=== PATIENT | female | born 1935 | race Caucasian/White ===

== ENCOUNTER 2022-03-05 21:40 | Outpatient (REF) | payer MEDICARE, OTHER, SELFPAY ==
[2022-03-05 21:10] LABS: HCT 37.9 % (36.0-46.0); HGB 12.3 g/dL (11.2-15.7); MCH 30.8 pg (27.0-33.0); MCHC 32.5 % (32.0-36.0); MCV 95 fL (80-95); MPV 10.8 fL (8.0-11.0); Platelet Count 210 10^3/uL (130-400); RBC 3.99 10^6/uL (3.93-5.22); RDW 12.8 % (11.7-14.6); WBC 7.93 10^3/uL (4.4-10.8)
[2022-03-05 21:27] LABS: ALT 28 U/L (14-59); AST 21 U/L (15-37); Albumin 3.7 g/dL (3.4-5.0); Alkaline Phosphatase 95 U/L (46-116); Anion Gap 6.2 mmol/L (3-11); BUN 22 mg/dL (7-18); Bilirubin, Total 0.5 mg/dL (0.2-1.0); CO2 29.8 mmol/L (21.0-32.0); CREATININE 0.8 mg/dL (0.55-1.02); Calcium 9.7 mg/dL (8.5-10.1); Chloride 100 mmol/L (98-107); Estimated GFR 71.71 (mL/min/1.73m2); Glucose 110 mg/dL (74-106); Potassium 4.4 mmol/L (3.5-5.1); Sodium 136 mmol/L (136-145); Total Protein 6.5 g/dL (6.4-8.2)
[2022-03-05 21:39] LABS: Calculated LDL 60 mg/dL (<100); Cholesterol 129 mg/dL (<200); HDL Cholesterol 57 mg/dL (40-60); Triglyceride 60 mg/dL (<150)
== END 2022-03-05 21:41 | disposition home or self-care (01) ==
LOC: NCHCN 21:40
PROVIDERS: Visit Provider Nurse Practitioner Family
DX: E78.5 Hyperlipidemia, unspecified; I10 Essential (primary) hypertension
CPT/HCPCS: 80053; 80061; 85027

== ENCOUNTER 2023-06-03 04:52 | Outpatient (CLI) | payer MEDICARE, OTHER, SELFPAY ==
[2023-06-03 14:08] LABS: Abs Immature Grans 0.06 10^3/uL (0.0-0.06); Absolute Basophil Count 0.06 10^3/uL (0.0-0.2); Absolute Eosinophil Count 0.22 10^3/uL (0.0-0.7); Absolute Lymphocyte Count 2.23 10^3/uL (1.2-3.4); Absolute Monocyte Count 0.81 10^3/uL (0.1-0.8); Absolute Neutrophil Count 5.62 10^3/uL (1.2-6.7); Basophils % 0.7; Eosinophils % 2.4; HCT 40.1 % (36.0-46.0); Immature Grans % 0.7; Lymphocytes % 24.8; MCH 29.9 pg (27.0-33.0); MCHC 32.4 % (32.0-36.0); MCV 92 fL (80-95); MPV 9.6 fL (8.0-11.0); Neutrophils % 62.4; Platelet Count 243 10^3/uL (130-400); RBC 4.35 10^6/uL (3.93-5.22); RDW 12.8 % (11.7-14.6); RDW-SD 43.2 fL
[2023-06-03 14:28] LABS: ALT 15 U/L (14-59); AST 17 U/L (15-37); Albumin 3.7 g/dL (3.4-5.0); Alkaline Phosphatase 97 U/L (46-116); Anion Gap 4.5 mmol/L (3-11); BUN 25 mg/dL (7-18); Bilirubin, Total 0.4 mg/dL (0.2-1.0); CO2 31.5 mmol/L (21.0-32.0); Calcium 10.4 mg/dL (8.5-10.1); Chloride 103 mmol/L (98-107); Estimated GFR 54.53 (mL/min/1.73m2); Glucose 92 mg/dL (74-106); Potassium 4.3 mmol/L (3.5-5.1); Sodium 139 mmol/L (136-145); Total Protein 6.9 g/dL (6.4-8.2)
[2023-06-03 23:51] LABS: CEA 10.3 ng/mL (See Note)
== END 2023-06-03 04:53 | disposition home or self-care (01) ==
LOC: LBO 04:52
PROVIDERS: PCP Nurse Practitioner Family; Visit Provider Internal Medicine Hematology & Oncology
DX: C18.9 Malignant neoplasm of colon, unspecified (principal)
CPT/HCPCS: 36415; 80053; 82378; 85025

== ENCOUNTER 2023-10-12 15:11 | Outpatient (REF) | payer MEDICARE, OTHER, SELFPAY | END 2023-10-12 15:12 | disposition home or self-care (01) | LOC: NCHCN 15:11 | PROVIDERS: PCP Nurse Practitioner Family; Visit Provider Physician Assistant | DX: N39.0 Urinary tract infection, site not specified (principal) | CPT/HCPCS: 87086 ==

== ENCOUNTER 2024-02-04 18:16 | Emergency (ER) | payer MEDICARE, OTHER, SELFPAY ==
[2024-02-04] VITALS (15 sets, daily range): BP systolic 164–223; BP diastolic 71–120; PULSE 54–76; RESP 10–27; O2SAT 96–98
--- NOTE | 2024-02-04 18:15 | RT.EKG_ITS ---
APPROVED REPORT Exam: Resting ECG Reason for Exam: palpatations Patient Location: E HR:69 bpm ECG Measurements Heart Rate 69 AXIS NM 189 P 35 QRSd 99 QRS -45 QT 454 T 20 QTc 487 Conclusion Sinus rhythm 69 normal axis no stemi
[2024-02-04 18:45] LABS: Abs Immature Grans 0.05 10^3/uL (0.0-0.06); Absolute Basophil Count 0.05 10^3/uL (0.0-0.2); Absolute Lymphocyte Count 1.95 10^3/uL (1.2-3.4); Absolute Monocyte Count 0.76 10^3/uL (0.1-0.8); Absolute Neutrophil Count 8.04 10^3/uL (1.2-6.7); Basophils % 0.5 %; Eosinophils % 0.9 %; HGB 13.7 g/dL (11.2-15.7); Immature Grans % 0.5 %; Lymphocytes % 17.8 %; MCH 30.4 pg (27.0-33.0); MCHC 32.6 % (32.0-36.0); MCV 93 fL (80-95); MPV 9.7 fL (8.0-11.0); Monocytes % 6.9 %; Neutrophils % 73.4 %; Platelet Count 218 10^3/uL (130-400); RBC 4.51 10^6/uL (3.93-5.22); RDW 12.8 % (11.7-14.6); RDW-SD 43.8 fL; WBC 10.95 10^3/uL (4.4-10.8)
[2024-02-04 19:04] LABS: ALT 20 U/L (14-59); AST 21 U/L (15-37); Albumin 3.9 g/dL (3.4-5.0); Alkaline Phosphatase 108 U/L (46-116); Anion Gap 11.7 mmol/L (3-11); BUN 21 mg/dL (7-18); Bilirubin, Total 0.44 mg/dL (0.2-1.0); CO2 26.3 mmol/L (21.0-32.0); CREATININE 0.9 mg/dL (0.55-1.02); Calcium 10.1 mg/dL (8.5-10.1); Chloride 102 mmol/L (98-107); Estimated GFR 61.49 (mL/min/1.73m2); Glucose 114 mg/dL (74-106); Magnesium 2.2 mg/dL (1.8-2.4); Potassium 3.9 mmol/L (3.5-5.1); Sodium 140 mmol/L (136-145); Total Protein 7.5 g/dL (6.4-8.2); Troponin I < 50 ng/L (< or =60)
[2024-02-04 20:09] LABS: Bilirubin Negative (Negative); Blood Trace-lysed (Negative); Clarity Clear (Clear); Glucose Negative (Negative); Ketones Negative (Negative); Leukocyte Esterase Trace (Negative); Nitrite Negative (Negative); Urobilinogen 0.2 mg/dL (Up to 0.2); pH 6.5 (5-8)
[2024-02-04 20:10] LABS: Bacteria Rare HPF (Negative); C & S Indicated? No; Casts 0-2 Hyaline LPF (Negative); Crystals Negative HPF (Negative); Epithelial Cells Rare HPF (Negative); Mucus Negative (Negative); RBC 0-2 HPF (0-2)
--- NOTE | 2024-02-04 21:12 | ED.GENADUL_ITS ---
Discharge Plan Disposition Patient Disposition: Home Discharge Details Clinical Impression: Fatigue, Poor appetite Primary Care Provider: Jenni Hernandez ED Provider: Stan Aldana Home Meds and New Rx's Prescriptions: No Action telmisartan-hydrochlorothiazid [Micardis HCT] 80-12.5 mg tablet 1 tab PO DAILY citalopram [Celexa] 20 mg tablet 20 mg PO DAILY omeprazole 20 mg capsule,delayed release(DR/EC) 20 mg PO DAILY aspirin 81 mg tablet,delayed release (DR/EC) 81 mg PO DAILY lorazepam 0.5 mg tablet 0.5 mg PO QHS polyethylene glycol 3350 [Miralax] 17 gram powder in packet 17 g PO DAILY PRN ergocalciferol (vitamin D2) 50 mcg (2,000 unit) capsule 50 mcg PO DAILY zinc acetate 50 mg (zinc) capsule 50 mg PO DAILY magnesium oxide 400 mg magnesium capsule 400 mg PO DAILY garlic 1,000 mg capsule 1,000 mg PO DAILY carvedilol 12.5 mg tablet 12.5 mg PO BID Rx Instructions: must administer with a meal/food Discharge Instructions Additional Instructions: be Sure to try and eat and drink normally Return with any concerning symptoms of poor intake, decreased urine output, chest pain, change in mental status. HPI General Date/Time Provider Initiated Documentation: 02/04/24 18:28 . Limitations to Documentation: no limitations . Information obtained by: patient and family . HPI Narrative: 88-year-old female with past medical history including hypertension presents for evaluation of fatigue and unwell feeling. Patient reports that when she got up earlier this morning she went to the bathroom, felt a little nauseated. She burton d a little bit of dizziness. She did not vomit or have diarrhea. She did not have any chest pain or shortness of breath. She returned to bed and went back to sleep. Several hours later her daughter went over to check on her, she was still in bed which was atypical. She had a bed and only ate a small amount of food, may be some toast. Did not have much interest in food. The patient did not have any additional symptoms. Eventually they went to urgent care just to make sure everything was okay and they were referred to the emergency department. The patient reports that she feels completely fine and does not have any additional symptoms this evening. Related Data Home Medications ?Medication ?Instructions ?Recorded ?Confirmed aspirin 81 mg tablet,delayed 81 mg PO DAILY 05/21/22 02/04/24 release carvedilol 12.5 mg tablet 12.5 mg PO BID 05/21/22 02/04/24 citalopram 20 mg tablet (Celexa) 20 mg PO DAILY 05/21/22 02/04/24 ergocalciferol (vitamin D2) 50 mcg 50 mcg PO DAILY 05/21/22 02/04/24 (2,000 unit) capsule garlic 1,000 mg capsule 1,000 mg PO DAILY 05/21/22 02/04/24 lorazepam 0.5 mg tablet 0.5 mg PO QHS 05/21/22 02/04/24 magnesium oxide 400 mg PO DAILY 05/21/22 02/04/24 omeprazole 20 mg capsule,delayed 20 mg PO DAILY 05/21/22 02/04/24 release polyethylene glycol 3350 17 gram 17 g PO DAILY PRN 05/21/22 02/04/24 oral powder packet (Miralax) telmisartan 80 1 tab PO DAILY 05/21/22 02/04/24 mg-hydrochlorothiazide 12.5 mg tablet (Micardis HCT) zinc acetate 50 mg (zinc) capsule 50 mg PO DAILY 05/21/22 02/04/24 Allergies Allergy/AdvReac Type Severity Reaction Status Date / Time ciprofloxacin (From Cipro) Allergy Severe Verified 05/22/22 10:10 Penicillins Allergy Severe Verified 05/22/22 10:10 Tetanus Vaccines and Toxoid Allergy Severe Verified 05/22/22 10:10 General Stated Complaint: GenMedical LUCAS: 3 Exam Narrative Exam Narrative: Review of Systems: All systems reviewed & are unremarkable except as noted in HPI and below Well-developed, no acute distress NCAT PERRL, normal conjunctiva RRR, hypertensive, no murmur Unlabored respiratory effort, clear bilaterally Nondistended abdomen , soft nontender Extremities w/o deformity, no cyanosis, no edema No rashes or lesions. no focal neurologic deficits, normal strength and sensation throughout Appropriate mood and affect Course Vital Signs Vital signs: Vital Signs Pulse 76 02/04/24 18:27 Respiratory Rate 10 L 02/04/24 18: Blood Pressure 223/92 H 02/04/24 18:27 Pulse Oximetry 97 02/04/24 18:27 Pulse 59 L 02/04/24 20:31 Pulse 60 02/04/24 20:31 Respiratory Rate 19 02/04/24 20:31 Respiratory Effort Non-Labored, Short of Breath 02/04/24 19:19 Blood Pressure 164/120 H 02/04/24 20:31 Blood Pressure Mean 128 02/04/24 20:31 Pulse Oximetry 97 02/04/24 20:20 Oxygen Delivery Method Room Air 02/04/24 19:14 Oxygen Flow Rate 0 02/04/24 19:14 Pain Level 0 02/04/24 19:14 Lab/Test Results Lab/Test Results: Laboratory Tests Range/Units 02/04/24 02/04/24 02/04/24 18:33 19:16 19:50 WBC (4.4-10.8) 10^3/uL 10.95 H RBC (3.93-5.22) 10^6/uL 4.51 Hgb (11.2-15.7) g/dL 13.7 Hct (36.0-46.0) % 42.0 MCV (80-95) fL 93 MCH (27.0-33.0) pg 30.4 MCHC (32.0-36.0) % 32.6 RDW (11.7-14.6) % 12.8 Plt Count (130-400) 10^3/uL 218 MPV (8.0-11.0) fL 9.7 Immature Gran % % 0.5 Neutrophils % % 73.4 Lymphocytes % % 17.8 Monocytes % % 6.9 Eosinophils % % 0.9 Basophils % % 0.5 Nucleated RBC % (0.0-0.3) % 0.0 Absolute Neutrophils (1.2-6.7) 10^3/uL 8.04 H Absolute Lymphocytes (1.2-3.4) 10^3/uL 1.95 Absolute Monocytes (0.1-0.8) 10^3/uL 0.76 Absolute Eosinophils (0.0-0.7) 10^3/uL 0.10 Absolute Basophils (0.0-0.2) 10^3/uL 0.05 Sodium (136-145) mmol/L 140 Potassium (3.5-5.1) mmol/L 3.9 Chloride (98-107) mmol/L 102 Carbon Dioxide (21.0-32.0) mmol/L 26.3 Anion Gap (3-11) mmol/L 11.7 H BUN (7-18) mg/dL 21 H Creatinine (0.55-1.02) mg/dL 0.9 Est GFR (CKD-EPI 2020) (mL/min/1.73m2) 61.49 Glucose (74-106) mg/dL 114 H Calcium (8.5-10.1) mg/dL 10.1 Magnesium (1.8-2.4) mg/dL 2.2 Total Bilirubin (0.2-1.0) mg/dL 0.44 AST (15-37) U/L 21 ALT (14-59) U/L 20 Alkaline Phosphatase (46-116) U/L 108 Troponin I (< or =60) ng/L < 50 Total Protein (6.4-8.2) g/dL 7.5 Albumin (3.4-5.0) g/dL 3.9 Urine Color (Yellow) Yellow Urine Clarity (Clear) Clear Urine pH (5-8) 6.5 Ur Specific [place] (1.005-1.025) 1.020 Urine Protein (Neg-Trace) mg/dL Negative Urine Ketones (Negative) mg/dL Negative Urine Blood (Negative) Trace-lysed H Urine Nitrite (Negative) Negative Urine Bilirubin (Negative) Negative Urine Urobilinogen (Up to 0.2) mg/dL 0.2 Ur Leukocyte Esterase (Negative) Trace H Urine RBC (0-2) HPF 0-2 Urine WBC (0-5) HPF 3-5 Ur Epithelial Cells (Negative) HPF Rare Urine Crystals (Negative) HPF Negative Urine Bacteria (Negative) HPF Rare Urine Casts (Negative) LPF 0-2 Hyaline Urine Mucus (Negative) Negative Ur Culture Indicated? No Urine Glucose (Negative) mg/dL Negative COVID-19 Source Cancelled SARS-CoV-2 (PCR) Cancelled Influenza Type A (PCR) Cancelled Influenza Type B (PCR) Cancelled RSV (PCR) Cancelled Medical Decision Making Emergent evaluation of fatigue and decreased appetite. Patient was referred from urgent care though she is asymptomatic at this time. She is old, has hypertension and has other medical comorbidities that could be of concern and explain her symptoms from earlier today. Does not sound like she had any focal neurologic deficit concerning for CVA or TIA. No chest pain concerning for FL. Her EKG does not demonstrate acute ischemic change. Her symptoms could be s econdary to viral illness or urinary tract infection. Lab work was obtained, white blood cell count is 10 with slight shift which may indicate early signs of infection. Renal function is unremarkable and there is no electrolyte derangement. Troponin is negative. Given the time course, single troponin that is not elevated makes cardiac ischemia very unlikely to be a cause of her symptoms this morning. Urinary tract infection does have some trace leukocytes, but otherwise no signs of infection. On reevaluation, blood pressure is improved slightly. Patient has not been taking her Coreg and given her age I do not feel aggressive blood pressure management would be indicated. She is completely asymptomatic and wants to go home. At this time no emergent condition has been identified, and I feel that the patient is stable for discharge. Return precautions advised and recommend close reevaluation with her primary care provider ECG Data Attestation: I personally reviewed and interpreted this ECG (s) as follows: Interpretation: Sinus 69 normal axis, no STEMI, no acute ischemic change Quality:SDOH Health Related Social Needs: No Data to Display PFSH All Active Problems Poor appetite (Acute) Fatigue (Acute) Nail dystrophy (Acute) GERD (gastroesophageal reflux disease) (Chronic) Elevated carcinoembryonic antigen (CEA) (Acute) Anxiety (Chronic) Insomnia (Acute) Dyslipidemia (Acute) Hypertension (Chronic) Medical History History of benign breast tumor x 2 DVT (deep venous thrombosis) R leg Duodenal ulcer Surgical History H/O reduction mammoplasty 2001 History of back surgery 1998, 2007, 2009 History of appendectomy Hx of tonsillectomy Social History Smoking/Tobacco Use Status: Unknown Smoking risk assessment performed?: Yes Substance use type: does not use Housing: house Do you feel safe at home: Yes Do you feel safe in your relationship?: Yes
== END 2024-02-04 20:42 | disposition home or self-care (01) ==
PROVIDERS: Emergency Provider Emergency Medicine; PCP Nurse Practitioner Family
DX: R53.83 Other fatigue (principal); R63.0 Anorexia; R42 Dizziness and giddiness
CPT/HCPCS: 80053; 87426; 87637; 93005; 99284; 81003; 81015; 83735; 84484; 85025; 93010

== ENCOUNTER → 2024-04-19 14:52 | Outpatient (BNVA) | payer MEDICARE, OTHER, SELFPAY | PROVIDERS: PCP Nurse Practitioner Family; Referring Provider Nurse Practitioner Family; Visit Provider Nurse Practitioner Adult Health | DX: R41.3 Other amnesia (principal) | CPT/HCPCS: 99215 ==

== ENCOUNTER 2024-05-12 16:17 | Outpatient (REF) | payer MEDICARE, OTHER, SELFPAY ==
[2024-05-12 22:47] LABS: Iron 97 ug/dL (50-170); Total Iron Binding Capacity 242 ug/dL (250-450); Transferrin Sat 40 % (15-50)
[2024-05-12 22:57] LABS: Ferritin 47 ng/mL (8-252); TSH (W/Ref FT4) 1.48 uIU/mL (0.36-3.74); Vitamin B12 667 pg/mL (193-986)
== END 2024-05-12 16:18 | disposition home or self-care (01) ==
LOC: NCHCN 16:17
PROVIDERS: PCP Nurse Practitioner Family; Visit Provider Nurse Practitioner Family
DX: R41.3 Other amnesia (principal); G25.81 Restless legs syndrome
CPT/HCPCS: 82607; 82728; 83540; 83550; 84443

== ENCOUNTER 2025-02-21 16:02 | Outpatient (REF) | payer MEDICARE, OTHER, SELFPAY ==
[2025-02-21 15:53] LABS: Abs Immature Grans 0.03 10^3/uL (0.0-0.06); HCT 38.6 % (36.0-46.0); HGB 12.7 g/dL (11.2-15.7); Immature Grans % 0.4 %; MCH 30.5 pg (27.0-33.0); MCHC 32.9 % (32.0-36.0); MCV 93 fL (80-95); MPV 10.9 fL (8.0-11.0); Platelet Count 230 10^3/uL (130-400); RBC 4.17 10^6/uL (3.93-5.22); RDW 12.8 % (11.7-14.6); RDW-SD 43.7 fL; WBC 7.88 10^3/uL (4.4-10.8)
[2025-02-21 16:10] LABS: ALT 17 U/L (14-59); AST 18 U/L (15-37); Albumin 3.6 g/dL (3.4-5.0); Alkaline Phosphatase 90 U/L (46-116); Anion Gap 7.1 mmol/L (3-11); BUN 21 mg/dL (7-18); Bilirubin, Total 0.4 mg/dL (0.2-1.0); CO2 27.9 mmol/L (21.0-32.0); Calcium 10.2 mg/dL (8.5-10.1); Chloride 102 mmol/L (98-107); Estimated GFR 61.11 (mL/min/1.73m2); Glucose 124 mg/dL (74-106); Potassium 4.7 mmol/L (3.5-5.1); Sodium 137 mmol/L (136-145); Total Protein 6.3 g/dL (6.4-8.2)
== END 2025-02-21 16:03 | disposition home or self-care (01) ==
LOC: NCHCN 16:02
PROVIDERS: PCP Nurse Practitioner Family; Visit Provider Nurse Practitioner Family
DX: R63.4 Abnormal weight loss (principal); I10 Essential (primary) hypertension
CPT/HCPCS: 80053; 85025